=== PATIENT | female | born 1970 ===

== ENCOUNTER 2017-06-26 08:12 | Emergency (ER) | payer OTHER ==
[2017-06-26 08:15] VITALS: BMI 25.0
[2017-06-26 08:16] VITALS: O2SAT 97
[2017-06-26] MEDS ORDERED: HYDROmorphone 0.5 mg/0.5 ml ISec IVP STA (09:15)
[2017-06-26] MEDS ORDERED: Sodium Chloride 0.9% 1,000 ML IV STA (09:15)
[2017-06-26 09:29] LABS: BASO % 0.5 % (0.0-2.0); EOS # 0.1 K/uL (0.0-0.7); HEMATOCRIT 38.8 % (34.0-47.0); LYMPH # 1.7 K/uL (1.0-4.3); LYMPH % 27.8 % (20.0-40.0); MEAN CELL VOLUME 82.7 fl (81.0-99.0); MEAN CORPUSCULAR HEMOGLOBIN 26.6 pg (27.0-31.0); MEAN CORPUSCULAR HGB CONC 32.2 g/dL (33.0-37.0); MEAN PLATELET VOLUME 8.8 fl (7.2-11.7); MONO # 0.4 K/uL (0.0-0.8); MONO % 7.4 % (0.0-10.0); NEUT # 3.7 K/uL (1.8-7.0); NEUT % 62.3 % (50.0-75.0)
--- NOTE | 2017-06-26 09:34 | ED PDOC ---
HPI: Abdomen Time Seen by Provider: 06/26/17 08:36 Chief Complaint (Nursing): Abdominal Pain Chief Complaint (Provider): Abdominal Pain History Per: Patient History/Exam Limitations: no limitations Onset/Duration Of Symptoms: Other (x2 weeks) Additional Complaint(s): Frida Agosto is a 46 year old female who presents to the ED complaining of intermittent right sided abdominal pain for 2 weeks. Patient reports feeling bloated. Denies fever, nausea, vomiting, diarrhea, constipation, dysuria, and hematuria. PMD: Non CPH Provider Past Medical History Reviewed: Historical Data, Nursing Documentation, Vital Signs Vital Signs: Last Vital Signs Temp 98.2 F 06/26/17 08:15 Pulse 68 06/26/17 08:15 Resp 18 06/26/17 08:15 BP 113/62 06/26/17 08:15 Pulse Ox 97 06/26/17 12:14 - Medical History PMH: Anxiety, Gastritis, HTN Denies: Chronic Kidney Disease - Surgical History Surgical History: Appendectomy Other surgeries: Hysterectomy - Family History Family History: States: Unknown Family Hx - Social History Current smoker - smoking cessation education provided: No Alcohol: None Drugs: Denies - Home Medications Home Medications: Ambulatory Orders Medication Instructions Recorded Omeprazole [Prilosec] 20 mg PO DAILY #30 ecc 06/11/14 Atorvastatin [Lipitor] 20 mg PO DAILY 03/11/16 Gabapentin [Neurontin] 300 mg PO TID 03/11/16 LORazepam [Ativan] 0.5 mg PO BID PRN 03/11/16 Ciprofloxacin [Cipro] 500 mg PO BID #13 tab 06/26/17 metroNIDAZOLE [Flagyl] 500 mg PO TID #20 tab 06/26/17 - Allergies Allergies/Adverse Reactions: Allergies Allergy/AdvReac Type Severity Reaction Status Date / Time No Known Allergies Allergy Verified 06/11/14 09:07 Review of Systems ROS Statement: Except As Marked, All Systems Reviewed And Found Negative Constitutional: Negative for: Fever Gastrointestinal: Positive for: Abdominal Pain. Negative for: Nausea, Vomiting , Diarrhea, Constipation Genitourinary Female: Negative for: Dysuria, Hematuria Physical Exam - Reviewed Nursing Documentation Reviewed: Yes Vital Signs Reviewed: Yes - Physical Exam Appears: Positive for: Non-toxic, In Acute Distress (Mild painful distress) Head Exam: Positive for: ATRAUMATIC, NORMAL INSPECTION, NORMOCEPHALIC Skin: Positive for: Normal Color, Warm, Dry Eye Exam: Positive for: EOMI, Normal appearance, PERRL Neck: Positive for: Normal, Painless ROM, Supple Cardiovascular/Chest: Positive for: Regular Rate, Rhythm. Negative for: Murmur Respiratory: Positive for: Normal Breath Sounds. Negative for: Respiratory Distress Gastrointestinal/Abdominal: Positive for: Normal Exam, Bowel Sounds, Soft. Negative for: Tenderness Back: Positive for: Normal Inspection, R CVA Tenderness (Mild). Negative for: L CVA Tenderness, Vertebral Tenderness Extremity: Positive for: Normal ROM. Negative for: Pedal Edema, Deformity Neurologic/Psych: Positive for: Alert, Oriented - Laboratory Results Result Diagrams: 06/26/17 09:20 06/26/17 09:20 - ECG O2 Sat by Pulse Oximetry: 97 (RA) Pulse Ox Interpretation: Normal Medical Decision Making Medical Decision Making: Time: 09:14 Initial Impression: Renal stones, pyelonephritis, UTI Initial Plan: --CT Abdomen and pelvis w/o contrast --EKG --CMP --Lipase --Urine dipstick --CBC --Partial thromboplastin time --Prothrombin time --Hydromorphone 0.5 mg IVP --Sodium chloride 0.9% 1,000 ml IV --Urinalysis --Reevaluation Time: 11:00 CT Abdomen/Pelvis: FINDINGS: LOWER THORAX: No infiltrate/ effusion. 5 mm pleural-based nodule posterior right lower lobe for which no follow-up is advised as per Fleischner society criteria. . LIVER: Unremarkable. No gross lesion or ductal dilatation. GALLBLADDER AND BILE DUCTS: Unremarkable. PANCREAS: Unremarkable. No gross lesion or ductal dilatation. SPLEEN: Unremarkable. ADRENALS: Unremarkable. No mass. KIDNEYS AND URETERS: Unremarkable. No hydronephrosis. No solid mass. VASCULATURE: Unremarkable. No aortic aneurysm. BOWEL: Diverticulosis of the transverse colon. Circumferential mural thickening of the transverse colon most likely due to chronic muscular hypertrophy. This is atypical in the transverse colon and is more frequently seen in the sigmoid colon. Alternatively, the possibility of a transverse colitis may be considered , either infectious or inflammatory. Please correlate. There is mild sigmoid diverticulosis. No other abnormal bowel loops are appreciated. There is no bowel obstruction. The stomach is unremarkable. APPENDIX: The patient appears to be status post appendectomy. Surgical clips are seen at the level of the cecal apex with no evident appendix. PERITONEUM: Unremarkable. No free fluid. No free air. LYMPH NODES: Unremarkable. No enlarged lymph nodes. BLADDER: Unremarkable. REPRODUCTIVE: Normal anteverted uterus. No adnexal masses. BONES: No acute fracture. OTHER FINDINGS: None. IMPRESSION: Diverticular disease of the transverse colon with circumferential mural thickening of the transverse colon. Differential diagnosis includes muscular hypertrophy secondary to chronic diverticular disease or an inflammatory/ infectious colitis limited to the transverse colon. The remainder of the examination is unremarkable. ADDENDUM: Addendum dictation: Please note that there is an inferior vena caval filter present. This was not noted in the earlier report for this patient. [ Addendum Report Added by Alvaro Zhou MD at 06/26/2017 11:42:14 ] Time: 12:00 --Flagyl 500 mg PO Time: 12:50 --Toradol 15 mg IV Time: 1:00 --Ciproflaxin 400 mg in 200 ml IV Clinical Impression: Colitis Upon provider evaluation patient is medically stable, and requires no further treatment in the ED at this time. Patient will be discharged with Rx for Cipro and Flagyl. Counseling was provided and all questions were answered regarding diagnosis and need for follow up with PMD and Dr. Collins. There is agreement to discharge plan. Return if symptoms persist or worsen. Scribe Attestation: Documented by Maykel Boyce, acting as a scribe for Ana Lilia Her Provider Scribe Attestation: All medical record entries made by the Scribe were at my direction and personally dictated by me. I have reviewed the chart and agree that the record accurately reflects my personal performance of the history, physical exam, medical decision making, and the department course for this patient. I have also personally directed, reviewed, and agree with the discharge instructions and disposition. Disposition - Clinical Impression Clinical Impression: Colitis - Patient ED Disposition Is Patient to be Admitted: No Counseled Patient/Family Regarding: Studies Performed, Diagnosis, Need For Followup, Rx Given - Disposition Referrals: [facility] [Outside] Provider TBD, [Primary Care Provider] - Dennis ANDINO,MD Cherelle [Medical Doctor] - Disposition: Routine/Home Disposition Time: 12:37 Condition: STABLE Prescriptions: Ciprofloxacin [Cipro] 500 mg PO BID #13 tab metroNIDAZOLE [Flagyl] 500 mg PO TID #20 tab Instructions: Colitis (ED) Forms: [employer] (Urdu) Print Language: NORWEGIAN
[2017-06-26 09:42] LABS: ALB/GLOB RATIO 1.2 (1.0-2.1); ALKALINE PHOSPHATASE 57 U/L (38-126); ALT/SGPT 38 U/L (9-52); AST/SGOT 31 U/L (14-36); BILIRUBIN,TOTAL 0.3 mg/dl (0.2-1.3); BLOOD UREA NITROGEN 11 mg/dl (7-17); CALCIUM 8.6 mg/dL (8.4-10.2); CARBON DIOXIDE 27 mmol/L (22-30); CHLORIDE 106 mmol/L (98-107); GFR AFRICAN-AMERICAN > 60; GLUCOSE,RANDOM 102 mg/dL (65-105); LIPASE 56 U/L (23-300); POTASSIUM 4.1 MMOL/L (3.6-5.0); SODIUM 142 mmol/l (132-148); TOTAL PROTEIN 7.6 G/DL (6.3-8.2)
[2017-06-26 09:45] LABS: PARTIAL THROMBOPLASTIN TIME 29.3 Seconds (25.6-37.1)
[2017-06-26 09:49] LABS: RBC URINE 3 /hpf (0-3); URINE BACTERIA OCC (<OCC); URINE BILIRUBIN NEGATIVE (NEGATIVE); URINE BLOOD NEGATIVE (NEGATIVE); URINE COLOR YELLOW (YELLOW); URINE GLUCOSE (UA) NEG (Normal); URINE KETONE NEGATIVE (NEGATIVE); URINE LEUKOCYTE ESTERASE NEG Leu/uL (Negative); URINE PROTEIN NEGATIVE (NEGATIVE); URINE UROBILINOGEN 0.2-1.0 mg/dL (0.2-1.0); WBC URINE 3 /hpf (0-5)
--- NOTE | 2017-06-26 11:01 | CT ---
PROCEDURE: CT Abdomen and Pelvis without intravenous contrast HISTORY: R flank pain COMPARISON: None. TECHNIQUE: Without contrast.. Contrast Dose: 0 Radiation dose: Total exam DLP = 726.54 mGy-cm. This CT exam was performed using one or more of the following dose reduction techniques: Automated exposure control, adjustment of the mA and/or kV according to patient size, and/or use of iterative reconstruction technique. FINDINGS: LOWER THORAX: No infiltrate/ effusion. 5 mm pleural-based nodule posterior right lower lobe for which no follow-up is advised as per Fleischner society criteria. . LIVER: Unremarkable. No gross lesion or ductal dilatation. GALLBLADDER AND BILE DUCTS: Unremarkable. PANCREAS: Unremarkable. No gross lesion or ductal dilatation. SPLEEN: Unremarkable. ADRENALS: Unremarkable. No mass. KIDNEYS AND URETERS: Unremarkable. No hydronephrosis. No solid mass. VASCULATURE: Unremarkable. No aortic aneurysm. BOWEL: Diverticulosis of the transverse colon. Circumferential mural thickening of the transverse colon most likely due to chronic muscular hypertrophy. This is atypical in the transverse colon and is more frequently seen in the sigmoid colon. Alternatively, the possibility of a transverse colitis may be considered, either infectious or inflammatory. Please correlate. There is mild sigmoid diverticulosis. No other abnormal bowel loops are appreciated. There is no bowel obstruction. The stomach is unremarkable. APPENDIX: The patient appears to be status post appendectomy. Surgical clips are seen at the level of the cecal apex with no evident appendix. PERITONEUM: Unremarkable. No free fluid. No free air. LYMPH NODES: Unremarkable. No enlarged lymph nodes. BLADDER: Unremarkable. REPRODUCTIVE: Normal anteverted uterus. No adnexal masses. BONES: No acute fracture. OTHER FINDINGS: None. IMPRESSION: Diverticular disease of the transverse colon with circumferential mural thickening of the transverse colon. Differential diagnosis includes muscular hypertrophy secondary to chronic diverticular disease or an inflammatory/ infectious colitis limited to the transverse colon. The remainder of the examination is unremarkable.
--- NOTE | 2017-06-26 12:15 | CARD ---
APPROVED REPORT EKG Measurement Heart [id number] <Conclusion> Sinus bradycardia Possible inferior infarct, age undetermined Abnormal ECG
[2017-06-26] MEDS ORDERED: Ciprofloxacin 400mg/200ml D5W 400 MG/200 ML BAG IVPB ONE (12:53)
[2017-06-26] MEDS ORDERED: Ciprofloxacin 400mg/200ml D5W 400 MG/200 ML BAG IV STA (12:59)
[2017-06-26 14:40] VITALS: BP 110/68; PULSE 74; RESP 19; TEMP 98.6
== END 2017-06-26 14:40 | disposition home or self-care (01) ==
LOC: SUPCPDRO 08:12 → H.ER 08:12
DX: K52.9 Noninfective gastroenteritis and colitis, unspecified (principal); F41.9 Anxiety disorder, unspecified; I10 Essential (primary) hypertension
CPT/HCPCS: 74176; 80053; 81003; 81025; 83690; 85025; 85610; 85730; 93005; 96374; 96375; 99285; J0744; J1170; J1885; J7040

== ENCOUNTER 2017-11-06 14:53 | Emergency (ER) | payer OTHER ==
[2017-11-06 14:54] VITALS: BMI 25.0
[2017-11-06 14:59] VITALS: RESP 16; TEMP 98.4
--- NOTE | 2017-11-06 16:16 | ED PDOC ---
Upper Extremity Pain/Injury <Claudy Wakefield - Last Filed: 11/06/17 18:10> Chief Complaint (Provider): left arm pain History Per: Patient History/Exam Limitations: no limitations Onset/Duration Of Symptoms: Days (4) Current Symptoms Are (Timing): Intermittent Episodes Quality: Sharp Pain Scale Rating Of: 10 Elbow (Pic): 1 - Tenderness, Swelling Hands/Wrist (Pic): 1 - Tenderness, (+) Phalen's Test, (+) Tinel's Test Exacerbating Factor(s): Movement Additional Complaint(s): 47 yo ,f, PMhx/o HTN, Anxiety, PE, Seizure presents to ED c/o left arm pain ( shoulder, elbow and wrist) started 4 days ago, intermittent, partially alleviated with Ibuprofen, associated with mild swelling of medial side elbow and ulnar side wrist. She denies trauma, fall, different physical activity, fever, cough, SOB, Chest pain, n,v, abd pain, dysuria, stiffness, hx/o polyartralgia, weakness, numbness, erythema. Reports similar episode 1 year ago PMD: Calvin Lagunas <Philomena Lester - Last Filed: 11/06/17 18:58> Chief Complaint (Nursing): Upper Extremity Problem/Injury Supervising Attending Note - Supervising Attending Note The Documented history was done by the: Physician Applications Systems Engineer The documented physical exam was done by the: Physician Applications Systems Engineer The documented procedures were done by the: Physician Applications Systems Engineer - Attestation: I have personally seen and examined this patient.: Yes I have fully participated in the care of the patient.: Yes I have reviewed all pertinent clinical information: Yes - Notes: Notes:: 47 y/o F with vauge pain and swelling to right shoulder and elbow min to left wrist, no trauma no erythema no n/t/w, pt does repetitive motion, on exam full rom, ra pulses 2+ hand and arm nvi. sx improved with treatment <AshuClaudy - Last Filed: 11/06/17 18:10> Past Medical History Vital Signs: Last Vital Signs Temp 98.4 F 11/06/17 14:54 Pulse 86 11/06/17 14:54 Resp 16 11/06/17 14:54 BP 112/66 11/06/17 14:54 Pulse Ox 98 11/06/17 17:46 <AshuClaudy - Last Filed: 11/06/17 18:10> Reviewed: Historical Data, Nursing Documentation, Vital Signs Vital Signs: Last Vital Signs Temp 98.4 F 11/06/17 14:54 Pulse 86 11/06/17 14:54 Resp 16 11/06/17 14:54 BP 112/66 11/06/17 14:54 Pulse Ox 98 11/06/17 14:54 - Medical History PMH: Anxiety, Gastritis, HTN, Pulmonary Embolism Denies: Chronic Kidney Disease - Surgical History Surgical History: Appendectomy Other surgeries: -BTL. -Benign Brain Tumor 1999 - Family History Family History: States: Unknown Family Hx - Social History Alcohol: None Drugs: Denies <Philomena Lester - Last Filed: 11/06/17 18:58> - Home Medications Home Medications: Ambulatory Orders Medication Instructions Recorded Omeprazole [Prilosec] 20 mg PO DAILY #30 ecc 06/11/14 Atorvastatin [Lipitor] 20 mg PO DAILY 03/11/16 Gabapentin [Neurontin] 300 mg PO TID 03/11/16 LORazepam [Ativan] 0.5 mg PO BID PRN 03/11/16 Ciprofloxacin [Cipro] 500 mg PO BID #13 tab 06/26/17 metroNIDAZOLE [Flagyl] 500 mg PO TID #20 tab 06/26/17 Naproxen 500 mg PO BID PRN #30 tablet 11/06/17 - Allergies Allergies/Adverse Reactions: Allergies Allergy/AdvReac Type Severity Reaction Status Date / Time No Known Allergies Allergy Verified 06/11/14 09:07 Review of Systems ROS Statement: Except As Marked, All Systems Reviewed And Found Negative Musculoskeletal: Positive for: Shoulder Pain, Arm Pain, Other (left elbow, left wrist) <Philomena Lester - Last Filed: 11/06/17 18:58> Physical Exam - Physical Exam Appears: Positive for: Well, No Acute Distress Head Exam: Positive for: ATRAUMATIC, NORMOCEPHALIC Skin: Positive for: Normal Color Eye Exam: Positive for: Normal appearance ENT: Positive for: Normal ENT Inspection Neck: Positive for: Normal, Supple Cardiovascular/Chest: Positive for: Regular Rate, Rhythm. Negative for: Murmur Respiratory: Positive for: Normal Breath Sounds. Negative for: Crackles, Rales , Rhonchi, Wheezing Gastrointestinal/Abdominal: Positive for: Soft. Negative for: Tenderness, Distended, Guarding, Rebound Back: Positive for: Normal Inspection Extremity: Positive for: Tenderness (left shoulder anterior joint line. TD medial side left elbow. TD carpal tunnel left hand), Swelling (mild swollen medial side left elbow. no erythema. ), Other (Neer maneuvar +, Phalen, Tinnel + ). Negative for: Calf Tenderness, Deformity Neurologic/Psych: Positive for: Alert. Negative for: Motor/Sensory Deficits <Philomena Lester - Last Filed: 11/06/17 18:58> - Laboratory Results Result Diagrams: 11/06/17 16:26 11/06/17 16:26 - ECG ECG: Positive for: Interpreted By Ia ECG Rhythm: Positive for: Normal QRS, Normal ST Segment, Sinus Rhythm (77). Negative for: ST/T Changes Interpretation Of Abn EKG: rate of 77, no evidence of ischemia <Claudy Wakefield - Last Filed: 11/06/17 18:10> - Laboratory Results Result Diagrams: 11/06/17 16:26 11/06/17 16:26 - ECG O2 Sat by Pulse Oximetry: 98 <Philomena Lester - Last Filed: 11/06/17 18:58> Medical Decision Making Medical Decision Makin:35 Impression Subacromial Bursitis left Medial epycondilitis left Carpal tunnel Syndrome left wrist Differential LUE DVT, RA Plan CBC, BMP,ESR, CK EKG Left shoulder XR, Left elbow XR LUE Doppler US Toradol 15 mg IV -Reevaluation 17:43 Patient reports that pain has partially alleviated with toradol, now 7/10 intensity XR shoulder, elbow normal. LUE duplex US negative for DVT CBC, MP normal Pending ESR Patient cleared to be discharged <Philomena Lester - Last Filed: 11/06/17 18:58> Disposition - Patient ED Disposition Is Patient to be Admitted: No Counseled Patient/Family Regarding: Studies Performed, Diagnosis, Need For Followup, Rx Given - Disposition Disposition: Routine/Home Disposition Time: 15:30 <Claudy Wakefield - Last Filed: 11/06/17 18:10> <Philomena Lester - Last Filed: 11/06/17 18:58> - Clinical Impression Clinical Impression: Epicondylitis, lateral (tennis elbow), Shoulder pain - Disposition Referrals: [facility] [Outside] (2 to 3 days, [facility] 2 to 3 days) Condition: GOOD Prescriptions: Naproxen 500 mg PO BID PRN #30 tablet PRN Reason: Pain, Moderate (4-7) Instructions: Tendonitis, Lateral Epicondylitis (DC) Forms: [employer] (Telugu) Print Language: GREENLANDIC
[2017-11-06 16:32] LABS: BASO % 0.6 % (0.0-2.0); EOS # 0.1 K/uL (0.0-0.7); EOS % 2.4 % (0.0-4.0); HEMOGLOBIN 12.1 g/dL (12.0-16.0); LYMPH # 1.4 K/uL (1.0-4.3); LYMPH % 26.5 % (20.0-40.0); MEAN CELL VOLUME 84.3 fl (81.0-99.0); MEAN CORPUSCULAR HEMOGLOBIN 27.8 pg (27.0-31.0); MEAN PLATELET VOLUME 8.1 fl (7.2-11.7); MONO # 0.5 K/uL (0.0-0.8); MONO % 10.4 % (0.0-10.0); NEUT # 3.1 K/uL (1.8-7.0); NEUT % 60.1 % (50.0-75.0); RBC 4.35 Mil/uL (3.80-5.20); RED CELL DISTRIBUTION WIDTH 14.6 % (11.5-14.5); WHITE BLOOD COUNT 5.2 K/uL (4.8-10.8)
[2017-11-06 16:43] LABS: BLOOD UREA NITROGEN 11 mg/dl (7-17); GFR AFRICAN-AMERICAN > 60; GFR NON-AFRICAN AMERICAN > 60
--- NOTE | 2017-11-06 17:14 | RAD ---
PROCEDURE: Radiographs of the Left Shoulder HISTORY: left shoulder pain COMPARISON: No prior. FINDINGS: BONES: Normal. No fracture. JOINTS: Normal. Glenohumeral and acromioclavicular joints preserved. No osteoarthritis. SOFT TISSUES: Normal. OTHER FINDINGS: None. IMPRESSION: Normal radiographs of the left shoulder. Concordant results with the preliminary interpretation rendered by the emergency department physician procedure.
--- NOTE | 2017-11-06 17:15 | RAD ---
PROCEDURE: Left elbow HISTORY: left elbow pain COMPARISON: None TECHNIQUE: Standard protocol for this study/examination. FINDINGS: No significant/acute osseous, articular or soft tissue abnormalities. IMPRESSION: No acute findings related to/accounting for the clinical presentation. Concordant results with the preliminary interpretation rendered by the emergency department physician procedure.
--- NOTE | 2017-11-06 17:20 | US ---
PROCEDURE: Left upper extremity venous Doppler exam HISTORY: Pain with history of DVT. PRIORS: No prior study available for comparison TECHNIQUE: Left upper extremity, internal jugular, subclavian, axillary, brachial, ulnar, radial, basilic and upper cephalic veins were evaluated. Flow was assessed with color Doppler, compressibility, assessment of phasic flow and augmentation response. FINDINGS: RIGH: The visualized left internal jugular vein, left subclavian, axillary, brachial, basilic, cephalic, ulnar and radial veins exhibit normal flow, compressibility and augmentation with no evidence of DVT. OTHER FINDINGS: None. IMPRESSION: The current study reveals no evidence of DVT within the visualized deep veins left upper extremity.
[2017-11-06] MEDS ORDERED: Oxycodone/Acetaminophen 5/325 mg Tab PO STA (18:10)
[2017-11-06] MEDS ORDERED: Oxycodone/Acetaminophen 5/325 mg Tab ONE (18:20)
[2017-11-06 18:43] VITALS: BP 120/70; PULSE 70
[2017-11-06 18:58] VITALS: O2SAT 98
--- NOTE | 2017-11-07 06:20 | CARD ---
APPROVED REPORT EKG Measurement Heart [id number] <Conclusion> Sinus rhythm with 1st degree AV block Inferior infarct, age undetermined Abnormal ECG
== END 2017-11-06 18:43 | disposition home or self-care (01) ==
LOC: H.ER 14:53
DX: M77.12 Lateral epicondylitis, left elbow (principal); M75.52 Bursitis of left shoulder; G56.00 Carpal tunnel syndrome, unspecified upper limb; F41.9 Anxiety disorder, unspecified; I10 Essential (primary) hypertension; M75.50 Bursitis of unspecified shoulder; Z86.711 Personal history of pulmonary embolism; Z86.718 Personal history of other venous thrombosis and embolism
CPT/HCPCS: 73030; 73070; 80048; 82550; 84484; 85025; 85651; 93005; 93971; 96374; 99283; J1885